=== PATIENT | male | born 1970 | race African-American/Black ===

== ENCOUNTER 2020-01-04 02:32 | Emergency (ER) | payer OTHER ==
[~2020-01-04] VITALS: Ht 185.4 cm; Wt 127.3 kg
[2020-01-04 03:54] VITALS: BP 141/90
== END 2020-01-04 04:16 | disposition home or self-care (01) ==
LOC: EMS 02:34
DX: R20.8 Other disturbances of skin sensation (principal); F17.210 Nicotine dependence, cigarettes, uncomplicated; Z77.098 Contact with and (suspected) exposure to other hazardous, chiefly nonmedicinal, chemicals
CPT/HCPCS: Z7502